=== PATIENT | male | born 1985 | race Caucasian/White ===

== ENCOUNTER 2016-04-08 14:57 | Emergency (ER) | payer OTHER ==
[2016-04-08] MEDS ORDERED: LOPERAMIDE 2 MG CAPSULE PO STA (16:32)
[2016-04-08] MEDS ORDERED: SODIUM CHLORIDE 0.9% 1,000 ML IV ONE (16:32)
[2016-04-08] MEDS ORDERED: KETOROLAC 60 MG/2 ML VIAL IVP STA (16:32)
[2016-04-08] MEDS ORDERED: ONDANSETRON 4 MG/2 ML VIAL IVP STA (16:32)
[2016-04-08] MEDS ORDERED: LOPERAMIDE 2 MG CAPSULE PO ONE (16:48)
[2016-04-08] MEDS ORDERED: KETOROLAC 60 MG/2 ML VIAL ONE (16:48)
[2016-04-08] MEDS ORDERED: ONDANSETRON 4 MG/2 ML VIAL ONE (16:48)
== END 2016-04-08 17:55 | disposition home or self-care (01) ==
DX: K52.9 Noninfective gastroenteritis and colitis, unspecified (principal)
CPT/HCPCS: 36415; 80053; 83690; 96374; 96375; 99283; 99284; A9270